=== PATIENT | female | born 1965 | race Two or more races ===

== ENCOUNTER → 2024-06-08 | Outpatient (CLI) | payer OTHER, BC, SELFPAY ==
[2024-06-08 10:21] LABS: Basophils % (Auto) 0 % (0-2.5); Eosinophils # (Auto) 0.2 Thou/mm3 (0.0-0.5); Eosinophils % (Auto) 3 % (0-10); Hematocrit 41.8 % (36.0-46.0); Hemoglobin 13.7 g/dL (12.0-16.0); Immature Granulocytes % (Auto) 0 % (0-0); Immature Granulocytes Auto 0.02 Thou/mm3 (0.00-0.00); Lymphocytes # (Auto) 2.4 Thou/mm3 (1.0-4.8); Lymphocytes % (Auto) 34 % (10-50); Mean Corpuscular HGB Conc 32.8 g/dl (31.0-37.0); Mean Corpuscular Hemoglobin 29.3 pg (25.0-35.0); Mean Corpuscular Volume 89 fL (80-100); Monocytes # (Auto) 0.5 Thou/mm3 (0.0-0.8); Monocytes % (Auto) 7 % (0-12); Neutrophils # (Auto) 3.8 Thou/mm3 (1.8-7.7); Neutrophils % (Auto) 55 % (37-80); Nucleated Red Blood Cell % 0 /100 WBC (0); Platelet Count 296 Thou/mm3 (140-440); RDW Standard Deviation 41.8 fL (36.4-46.3); Red Blood Count 4.68 Miln/mm3 (4.00-5.20); White Blood Count 6.9 Thou/mm3 (3.6-11.0)
[2024-06-08 10:41] LABS: Alanine Aminotransferase 29 U/L (10-49); Albumin, Serum 4.5 gm/dL (3.5-5.0); Albumin/Globulin Ratio 1.7 (1.2-2.2); Alkaline Phosphatase 185 U/L (46-116); Anion Gap 7 (7-16); Aspartate Amino Transferase 32 U/L (0-34); BUN/Creatinine Ratio 13 Ratio (12-20); Bilirubin,Total 0.5 mg/dL (0.3-1.2); Blood Urea Nitrogen 8 mg/dL (9-23); Calcium 9.8 mg/dL (8.3-10.6); Calcium (Corrected) 9.8 mg/dL (8.5-10.1); Carbon Dioxide 29.2 mMol/L (20.0-31.0); Cardiac Risk Estimate 4.3 RATIO (3.7-5.6); Chloride 104 mMol/L (98-107); Cholesterol 164 mg/dL (132-200); Creatinine (Component) 0.6 mg/dL (0.6-1.3); Globulin 2.7 gm/dL (2.3-3.5); Glucose 102 mg/dL (74-106); HDL Cholesterol 38 mg/dL (40-60); LDL Cholesterol,Calculated 91 mg/dL (0-130); Osmolality,Calculated 277 (275-295); Potassium 3.9 mMol/L (3.4-5.1); Sodium 140 mMol/L (136-145); Total Protein 7.2 gm/dL (5.7-8.2); Triglycerides 177 mg/dL (30-150); eGFR > 60 See Note
== END | disposition home or self-care (01) ==
PROVIDERS: PCP Specialist; Referring Provider Specialist; Visit Provider Specialist
DX: K76.89 Other specified diseases of liver (principal); K76.0 Fatty (change of) liver, not elsewhere classified; R94.5 Abnormal results of liver function studies; R79.89 Other specified abnormal findings of blood chemistry; R53.1 Weakness; R11.2 Nausea with vomiting, unspecified
CPT/HCPCS: 36415; 80053; 80061; 85025

== ENCOUNTER → 2025-03-01 | Outpatient (CLI) | payer OTHER, BC, SELFPAY ==
[2025-03-01 10:06] LABS: Basophils # (Auto) 0.0 Thou/mm3 (0.0-0.2); Basophils % (Auto) 0 % (0-2.5); Eosinophils # (Auto) 0.2 Thou/mm3 (0.0-0.5); Eosinophils % (Auto) 3 % (0-10); Hematocrit 44.2 % (36.0-46.0); Hemoglobin 14.3 g/dL (12.0-16.0); Immature Granulocytes Auto 0.02 Thou/mm3 (0.00-0.00); Lymphocytes # (Auto) 2.4 Thou/mm3 (1.0-4.8); Lymphocytes % (Auto) 36 % (10-50); Mean Corpuscular HGB Conc 32.4 g/dl (31.0-37.0); Mean Corpuscular Hemoglobin 29.1 pg (25.0-35.0); Mean Corpuscular Volume 90 fL (80-100); Monocytes # (Auto) 0.5 Thou/mm3 (0.0-0.8); Monocytes % (Auto) 7 % (0-12); Neutrophils # (Auto) 3.6 Thou/mm3 (1.8-7.7); Neutrophils % (Auto) 54 % (37-80); Nucleated Red Blood Cell # 0.00 Thou/mm3 (0.00-0.00); Nucleated Red Blood Cell % 0 /100 WBC (0); Platelet Count 320 Thou/mm3 (140-440); RDW Standard Deviation 43.6 fL (36.4-46.3); Red Blood Count 4.92 Miln/mm3 (4.00-5.20); White Blood Count 6.8 Thou/mm3 (3.6-11.0)
[2025-03-01 10:18] LABS: Alanine Aminotransferase 25 U/L (10-49); Albumin, Serum 5.0 gm/dL (3.5-5.0); Albumin/Globulin Ratio 2.0 (1.2-2.2); Alkaline Phosphatase 169 U/L (46-116); Anion Gap 10 (7-16); Aspartate Amino Transferase 30 U/L (0-34); BUN/Creatinine Ratio 15 Ratio (12-20); Bilirubin,Total 0.5 mg/dL (0.3-1.2); Blood Urea Nitrogen 9 mg/dL (9-23); Calcium 9.6 mg/dL (8.3-10.6); Calcium (Corrected) 9.6 mg/dL (8.5-10.1); Carbon Dioxide 27.9 mMol/L (20.0-31.0); Cardiac Risk Estimate 3.3 RATIO (3.7-5.6); Chloride 106 mMol/L (98-107); Cholesterol 147 mg/dL (132-200); Creatinine (Component) 0.6 mg/dL (0.6-1.3); Globulin 2.5 gm/dL (2.3-3.5); Glucose 116 mg/dL (74-106); HDL Cholesterol 44 mg/dL (40-60); LDL Cholesterol,Calculated 77 mg/dL (0-130); Osmolality,Calculated 286 (275-295); Potassium 3.9 mMol/L (3.4-5.1); Sodium 144 mMol/L (136-145); Total Protein 7.5 gm/dL (5.7-8.2); Triglycerides 130 mg/dL (30-150); eGFR > 60 See Note
== END | disposition home or self-care (01) ==
LOC: COPL 08:25
PROVIDERS: PCP Specialist; Referring Provider Specialist; Visit Provider Specialist
DX: R79.89 Other specified abnormal findings of blood chemistry (principal); R53.1 Weakness; R11.2 Nausea with vomiting, unspecified; R94.5 Abnormal results of liver function studies; K76.89 Other specified diseases of liver; K76.0 Fatty (change of) liver, not elsewhere classified
CPT/HCPCS: 36415; 80053; 80061; 85025

== ENCOUNTER → 2025-03-08 | Outpatient (CLI) | payer OTHER, BC, SELFPAY ==
--- NOTE | 2025-03-08 | XR_ITS ---
Examination: Abdomen AP single view Technique: AP portable supine abdomen, single view Exam date and time: March 08, 2025, 1342 hours INDICATIONS: Abdominal pain today. FINDINGS: Moderate stool throughout the colon No obstruction No free air Moderate osteopenia IMPRESSION: Moderate stool throughout the colon
== END | disposition home or self-care (01) ==
LOC: CDIM 13:11
PROVIDERS: Referring Provider Specialist; Visit Provider Specialist
DX: K59.00 Constipation, unspecified (principal)
CPT/HCPCS: 74018